=== PATIENT | female | born 1945 | race Caucasian/White ===

== ENCOUNTER 2025-04-08 12:57 | Inpatient (IN) | payer MEDICARE, MEDICAID ==
[2025-04-08 13:31] LABS: APPEARANCE,URINE CLOUDY (CLEAR); BILIRUBIN,URINE NEGATIVE (NEGATIVE); COLOR,URINE YELLOW (YELLOW); GLUCOSE,URINE NEGATIVE (NEGATIVE); KETONES,URINE NEGATIVE (NEGATIVE); LEUKOCYTE ESTERASE,URINE LARGE (NEGATIVE); NITRITE,URINE NEGATIVE (NEGATIVE); OCCULT BLOOD,URINE LARGE (NEGATIVE); PROTEIN,URINE 30 mg/dL (NEGATIVE); UROBILINOGEN,URINE 0.2 EU/dL (0.2-1.0)
[2025-04-08 13:32] LABS: BACTERIA,URINE FEW /HPF (NOT SEEN); RBC,URINE 50-75 /HPF (0-5); SQUAMOUS EPITHELIAL CELLS,UR FEW /HPF (NOT SEEN); WBC,URINE >100 /HPF (0-5)
[2025-04-08] MEDS: Sodium Chloride 0.9% 1,000 ML IV ONE (13:34)
[2025-04-08 14:06] LABS: LACTIC ACID 2.8 mmol/L (0.4-2.0)
[2025-04-08] MEDS: Cefepime 2 GM Vial IVPUSH SCH (15:01)
[2025-04-08] MEDS: Doxycycline 100 MG in Sodium Chloride 0.9% 100 ML IV ONE (15:26)
[2025-04-08] MEDS ORDERED: Ondansetron 4 MG/2 ML SDV IV PRN (15:38)
[2025-04-08] MEDS ORDERED: Acetaminophen 325 MG Tab PO PRN (15:38)
[2025-04-08] MEDS ORDERED: 50% Dextrose in Water 50 ML Syringe IVPUSH PRN (15:38)
[2025-04-08] MEDS ORDERED: Ondansetron 4 MG Tab.DIS PO PRN (15:38)
[2025-04-08] MEDS ORDERED: Glucagon,Human Recombinant 1 MG Vial IM PRN (15:38)
[2025-04-08] MEDS: Bumetanide 1 MG Tab PO SCH (16:33)
[2025-04-08] MEDS: Acetaminophen/HYDROcodone 325-5 MG Tab PO SCH (16:33)
[2025-04-08] MEDS: Insulin Regular, Human 100 Units/ML 10 ML Vial SUBCUT SCH (17:15)
[2025-04-08] MEDS: Carvedilol 6.25 MG Tab PO SCH (17:17)
[2025-04-08] MEDS: Sodium Chloride 0.9% 1,000 ML IV SCH (17:58)
[2025-04-08] MEDS ORDERED: Acetaminophen/HYDROcodone 325-5 MG Tab PO PRN (20:39)
[2025-04-08] MEDS: Fish Oil/Omega-3 Fatty Acids 1 Gm Cap PO SCH (20:48)
[2025-04-08] MEDS: Nystatin Topical Powder 15 GM Bottle TOP SCH (21:27)
[2025-04-08] MEDS: Cefepime 1 GM Vial IVPUSH SCH (23:55)
[2025-04-09] MEDS: Doxycycline 100 MG in Sodium Chloride 0.9% 100 ML IV SCH ×2 (03:36→15:47)
[2025-04-09] MEDS: Pantoprazole 40 MG Tab.CR PO SCH (06:26)
[2025-04-09] MEDS: Clopidogrel 75 MG Tab PO SCH (07:37)
[2025-04-09] MEDS: Cholecalciferol (Vitamin D3) 25 MCG Tab PO SCH (07:37)
[2025-04-09] MEDS: Lactobacillus Rhamnosus GG (Probiotic) Cap PO SCH (07:37)
[2025-04-09] MEDS: Aspirin 81 MG Tab.EC PO SCH (07:38)
[2025-04-09] MEDS: Lisinopril 20 MG Tab PO SCH (07:52)
[2025-04-09] MEDS: amLODIPine 2.5 MG Tab PO SCH (07:53)
[2025-04-09 07:56] LABS: BASOPHILS ABSOLUTE AUTO 0.05 10^3/uL (0.00-0.50); BASOPHILS PERCENT AUTO 0.4 % (0-1); EOSINOPHILS ABSOLUTE AUTO 0.39 10^3/uL (0.00-1.50); EOSINOPHILS PERCENT AUTO 2.8 % (0-6); HEMATOCRIT 25.7 % (37.0-47.0); IMMATURE GRAN ABSOLUTE AUTO 0.13 10^3/uL (0.00-0.49); IMMATURE GRAN PERCENT AUTO 0.9 % (0.0-4.9); LYMPHOCYTES ABSOLUTE AUTO 1.66 10^3/uL (0.60-5.00); LYMPHOCYTES PERCENT AUTO 12.1 % (24-44); MEAN CORPUSCULAR HEMOGLOBIN 31.3 pg (27.0-32.0); MEAN CORPUSCULAR HGB CONC 31.1 g/dL (32.0-36.0); MEAN CORPUSCULAR VOLUME 100.4 fL (83.0-97.0); MONOCYTES ABSOLUTE AUTO 0.86 10^3/uL (0.00-1.50); MONOCYTES PERCENT AUTO 6.3 % (0-10); NEUTROPHILS ABSOLUTE AUTO 10.64 x10^3/uL (1.80-8.00); NEUTROPHILS PERCENT AUTO 77.5 % (41-71); PLATELET COUNT,PLT 245 10^3/uL (150-400); RED BLOOD CELL COUNT 2.56 x10^6/uL (4.00-5.50); WHITE BLOOD CELL COUNT,WBC 13.7 10^3/uL (4.0-11.0)
[2025-04-09 08:08] LABS: ALBUMIN 2.3 g/dL (3.4-5.0); BILIRUBIN TOTAL 0.3 mg/dL (0.0-1.0); C-REACTIVE PROTEIN 9.53 mg/dL (<=0.50); CALCIUM 9.1 mg/dL (8.4-10.1); CREATININE 1.8 mg/dL (0.6-1.0); EST CRCL DRUG DOSING (CG) 18.5 mL/min; POTASSIUM,K 4.6 mEq/L (3.5-5.0); PROTEIN TOTAL,TP 6.6 g/dL (6.4-8.2)
[2025-04-09] MEDS: Insulin Regular, Human 100 Units/ML 10 ML Vial SUBCUT SCH ×3 (11:49→17:32)
[2025-04-09] MEDS: Cefepime 1 GM Vial IVPUSH SCH (15:47)
[2025-04-09] MEDS: Apixaban 5 MG Tab PO SCH (20:54)
[2025-04-09] MEDS: Gabapentin 100 MG Cap PO SCH (20:55)
[2025-04-09] MEDS: Docusate Sodium 100 MG Cap PO SCH (20:55)
[2025-04-09] MEDS: Fish Oil/Omega-3 Fatty Acids 1 Gm Cap PO SCH (20:55)
[2025-04-10] MEDS: Ferrous Sulfate 324 MG Tab.EC PO SCH (07:47)
[2025-04-10 08:08] LABS: BASOPHILS ABSOLUTE AUTO 0.04 10^3/uL (0.00-0.50); BASOPHILS PERCENT AUTO 0.3 % (0-1); EOSINOPHILS ABSOLUTE AUTO 0.56 10^3/uL (0.00-1.50); EOSINOPHILS PERCENT AUTO 4.3 % (0-6); HEMOGLOBIN 7.9 g/dL (12.0-16.0); IMMATURE GRAN ABSOLUTE AUTO 0.24 10^3/uL (0.00-0.49); IMMATURE GRAN PERCENT AUTO 1.8 % (0.0-4.9); LYMPHOCYTES ABSOLUTE AUTO 1.69 10^3/uL (0.60-5.00); MEAN CORPUSCULAR HEMOGLOBIN 31.5 pg (27.0-32.0); MEAN CORPUSCULAR HGB CONC 31.6 g/dL (32.0-36.0); MEAN CORPUSCULAR VOLUME 99.6 fL (83.0-97.0); MONOCYTES ABSOLUTE AUTO 0.85 10^3/uL (0.00-1.50); MONOCYTES PERCENT AUTO 6.5 % (0-10); NEUTROPHILS ABSOLUTE AUTO 9.62 x10^3/uL (1.80-8.00); NEUTROPHILS PERCENT AUTO 74.1 % (41-71); PLATELET COUNT,PLT 252 10^3/uL (150-400); RED BLOOD CELL COUNT 2.51 x10^6/uL (4.00-5.50)
[2025-04-10 08:18] LABS: ALBUMIN 2.3 g/dL (3.4-5.0); BILIRUBIN TOTAL 0.4 mg/dL (0.0-1.0); C-REACTIVE PROTEIN 7.79 mg/dL (<=0.50); CREATININE 1.7 mg/dL (0.6-1.0); EST CRCL DRUG DOSING (CG) 19.59 mL/min; POTASSIUM,K 4.5 mEq/L (3.5-5.0); PROTEIN TOTAL,TP 6.8 g/dL (6.4-8.2)
[2025-04-11 07:42] LABS: BASOPHILS ABSOLUTE AUTO 0.03 10^3/uL (0.00-0.50); BASOPHILS PERCENT AUTO 0.2 % (0-1); EOSINOPHILS ABSOLUTE AUTO 0.62 10^3/uL (0.00-1.50); EOSINOPHILS PERCENT AUTO 4.4 % (0-6); HEMATOCRIT 24.9 % (37.0-47.0); IMMATURE GRAN ABSOLUTE AUTO 0.25 10^3/uL (0.00-0.49); IMMATURE GRAN PERCENT AUTO 1.8 % (0.0-4.9); LYMPHOCYTES ABSOLUTE AUTO 1.73 10^3/uL (0.60-5.00); LYMPHOCYTES PERCENT AUTO 12.2 % (24-44); MEAN CORPUSCULAR HEMOGLOBIN 31.9 pg (27.0-32.0); MEAN CORPUSCULAR HGB CONC 32.1 g/dL (32.0-36.0); MEAN CORPUSCULAR VOLUME 99.2 fL (83.0-97.0); MONOCYTES ABSOLUTE AUTO 0.94 10^3/uL (0.00-1.50); MONOCYTES PERCENT AUTO 6.6 % (0-10); NEUTROPHILS ABSOLUTE AUTO 10.65 x10^3/uL (1.80-8.00); NEUTROPHILS PERCENT AUTO 74.8 % (41-71); PLATELET COUNT,PLT 245 10^3/uL (150-400); RED BLOOD CELL COUNT 2.51 x10^6/uL (4.00-5.50); WHITE BLOOD CELL COUNT,WBC 14.2 10^3/uL (4.0-11.0)
[2025-04-11 08:08] LABS: ALBUMIN 2.3 g/dL (3.4-5.0); BILIRUBIN TOTAL 0.4 mg/dL (0.0-1.0); C-REACTIVE PROTEIN 5.56 mg/dL (<=0.50); CREATININE 1.6 mg/dL (0.6-1.0); EST CRCL DRUG DOSING (CG) 20.81 mL/min; POTASSIUM,K 4.5 mEq/L (3.5-5.0); PROTEIN TOTAL,TP 6.8 g/dL (6.4-8.2)
[2025-04-11 14:07] VITALS: BP 141/50; PULSE 71
== END 2025-04-11 14:13 | disposition home or self-care (01) | DRG 683 ==
LOC: CC.ED 12:57 → CC.MS 15:10 → UNDOADMIN 15:10 → CC.MS 15:16
PROVIDERS: ADMIT Nurse Practitioner Family; ATTEND Nurse Practitioner Family
DX: N17.9 Acute kidney failure, unspecified (principal); C79.51 Secondary malignant neoplasm of bone; N39.0 Urinary tract infection, site not specified; Z66 Do not resuscitate; I11.0 Hypertensive heart disease with heart failure; I50.9 Heart failure, unspecified; B95.0 Streptococcus, group A, as the cause of diseases classified elsewhere; L89.159 Pressure ulcer of sacral region, unspecified stage; B96.4 Proteus (mirabilis) (morganii) as the cause of diseases classified elsewhere; C50.919 Malignant neoplasm of unspecified site of unspecified female breast; D64.9 Anemia, unspecified; E11.9 Type 2 diabetes mellitus without complications; Z85.3 Personal history of malignant neoplasm of breast; Z88.8 Allergy status to other drugs, medicaments and biological substances; Z79.899 Other long term (current) drug therapy; Z79.82 Long term (current) use of aspirin
CPT/HCPCS: 36415; 80053; 81001; 82947; 83605; 85025; 86140; 87040; 87070; 87077; 87086; 87088; 87186; 87205; 96361; 96374; 99223; 99232; 99233; 99239; 99284-25; A9270-GY; J0692; J3490; J7030